=== PATIENT | female | born 1940 | race Caucasian/White ===

== ENCOUNTER 2016-10-16 18:59 | Inpatient (IN) | payer MEDICARE, BC ==
[~2016-10-16] VITALS: Ht 175.3 cm; Wt 71.0 kg
[2016-10-16 19:02] VITALS: Ht 175.3 cm; Wt 71.0 kg
[2016-10-16] MEDS ORDERED: ONDANSETRON 4 MG INJ IV STA ×2 (19:34→19:56)
[2016-10-16] MEDS ORDERED: HYDROmorphONE 1 MG/ML SYG IV STA ×3 (19:34→22:28)
[2016-10-16] MEDS ORDERED: SOD CHLORIDE 0.9% 500 ML IV STA (19:56)
[2016-10-16 20:00] VITALS: TEMP 98.5
[2016-10-16 20:02] LABS: BASOPHILS % 0.3 % (0.0-2.0); EOSINOPHILS % 0.1 % (0.0-7.0); HEMATOCRIT 37.9 % (37.0-47.0); HEMOGLOBIN 12.5 g/dl (12.0-16.0); LYMPHOCYTES # 0.7 10^3/ul (0.8-2.9); LYMPHOCYTES % 7.4 % (15.0-51.0); MEAN CORPUSCULAR HEMOGLOBIN 32.5 pg (29.0-33.0); MEAN CORPUSCULAR VOLUME 98.4 fl (82.0-101.0); MEAN PLATELET VOLUME 10.9 fl (7.4-10.4); MONOCYTE # 0.3 10^3/ul (0.3-0.9); MONOCYTES % 3.1 % (0.0-11.0); NEUTROPHILS % 88.3 % (39.0-77.0); PLATELET COUNT 220 10^3/UL (140-415); RED BLOOD COUNT 3.85 10^6/ul (4.20-5.40); RED CELL DISTRIBUTION WIDTH 15.1 % (11.5-14.5)
[2016-10-16 20:19] LABS: INR 0.94; PROTIME 12.6 Sec (12.2-14.2)
[2016-10-16 20:21] LABS: CALCIUM 10.1 mg/dl (8.4-10.2); CREATININE 0.69 mg/dl (0.44-1.00); POTASSIUM 3.8 mmol/L (3.5-5.1)
--- NOTE | 2016-10-16 20:36 | ERA ---
ER Documentation Chief Complaint Date/Time DATE: 10/16/16 TIME: 20:34 Chief Complaint abd pain x 3 hours. +nausea -vomit, -diarrhea HPI 76-year-old female who presents to the emergency room complaining of abdominal pain for approximately 3 hours with associated right inguinal mass. She describes the pain as 8 out of 10, constant with associated worsening symptoms when she presses on the mass in the inguinal region on the right. Mild nausea but no vomiting. She states that she is passing stool and gas. ROS All systems reviewed and are negative except as per history of present illness. Allergies Allergies: Coded Allergies: No Known Allergy (Unverified , 10/16/16) PMhx/Soc Medical and Surgical Hx: pt denies Medical Hx, pt denies Surgical Hx History of Surgery: No Anesthesia Reaction: No Hx Neurological Disorder: No Hx Respiratory Disorders: No Hx Cardiac Disorders: Yes (hyperlipidemia, htn ) Hx Psychiatric Problems: No Hx Miscellaneous Medical Probl: No Hx Alcohol Use: No Hx Substance Use: No Hx Tobacco Use: No Smoking Status: Never smoker FmHx Family History: No diabetes Physical Exam Vitals Vital Signs Date Time Temp Pulse Resp B/P Pulse Ox O2 Delivery O2 Flow Rate FiO2 10/16/16 20:00 98.5 78 18 165/98 97 Room Air 10/16/16 19:02 98.5 83 18 192/89 97 Physical Exam General: Uncomfortable head: Normocephalic, atraumatic Eyes: Pupils equally reactive, EOM intact ENT: Moist mucous membranes Neck: Supple, no lymphadenopathy Respiratory: Lungs clear bilaterally, no distress Cardiovascular: RRR, no murmurs, rubs, or gallops Abdominal: Soft, no focal tenderness or peritonitis. Right inguinal region with a mass that is firm. With direct pressure unable to reduce what appears to be an inguinal hernia : Deferred MSK: No edema, no unilateral swelling, 5/5 strength Neurologic: Alert and oriented, moving all extremities, normal speech, no focal weakness, no cerebellar signs Skin: No rash Psych: Normal mood Result Diagram: 10/16/16194410/16/161944 Results 24 hrs Laboratory Tests Test 10/16/16 19:45 White Blood Count 10.010^3/ul Red Blood Count 3.8510^6/ul Hemoglobin 12.5g/dl Hematocrit 37.9% Mean Corpuscular Volume 98.4fl Mean Corpuscular Hemoglobin 32.5pg Mean Corpuscular Hemoglobin Concent 33.0g/dl Red Cell Distribution Width 15.1% Platelet Count 27890^3/UL Mean Platelet Volume 10.9fl Neutrophils % 88.3% Lymphocytes % 7.4% Monocytes % 3.1% Eosinophils % 0.1% Basophils % 0.3% Nucleated Red Blood Cells % 0.0/100WBC Neutrophils # (Manual) 8.810^3/ul Lymphocytes # 0.710^3/ul Monocytes # 0.310^3/ul Eosinophils # 0.010^3/ul Basophils # 0.010^3/ul Nucleated Red Blood Cells # 0.010^3/ul Prothrombin Time 12.6Sec Prothrombin Time Ratio 1.0 INR International Normalized Ratio 0.94 Activated Partial Thromboplast Time 32.0Sec Sodium Level 141mmol/L Potassium Level 3.8mmol/L Chloride Level 107mmol/L Carbon Dioxide Level 24mmol/L Anion Gap 14 Blood Urea Nitrogen 18mg/dl Creatinine 0.69mg/dl Glucose Level 152mg/dl Calcium Level 10.1mg/dl Current Medications Medications (Trade) Dose Ordered Sig/Jessica Route PRN Reason Start Time Stop Time Status Last Admin Dose Admin Hydromorphone HCl (Dilaudid) 0.5 mg ONCE STAT IV 10/16/16 19:34 10/16/16 19:35 DC 10/16/16 19:49 Ondansetron HCl 4 mg 4 mg ONCE STAT IV 10/16/16 19:34 10/16/16 19:35 DC 10/16/16 19:49 Sodium Chloride (NS) 500 ml @ 500 mls/hr Q1H STAT IV 10/16/16 19:56 10/16/16 20:55 DC 10/16/16 20:32 Hydromorphone HCl (Dilaudid) 0.5 mg ONCE STAT IV 10/16/16 19:56 10/16/16 19:57 DC 10/16/16 20:27 Ondansetron HCl (Zofran Inj) 4 mg ONCE STAT IV 10/16/16 19:56 10/16/16 19:57 DC Ondansetron HCl (Zofran Inj) 4 mg BRIDGE ORDER PRN IV NAUSEA AND/OR VOMITING 10/16/16 22:30 10/17/16 22:29 Acetaminophen (Tylenol Tab) 650 mg ER BRIDGE PRN PO MILD PAIN/FEVER 10/16/16 22:30 10/17/16 22:29 Procedures/MDM EKG, MONITORS, & DIAGNOSTIC IMAGING: CT abdomen and pelvis: IMPRESSION: 1. Right femoral 4.3 cm hernia containing a dilated small bowel loop. Slight dilatation of the bowel loops just proximal to the hernia with relative decompression of the distal small bowel loops after the hernia suggests mild partial small bowel obstruction. 2. Status post hysterectomy. RPTAT: HJPL LAB INTERPRETATION: No leukocytosis MEDICAL DECISION MAKING: The patient presents to the emergency room with abdominal pain, nausea and right inguinal lesion. On inspection this lesion is most consistent with likely indirect hernia that appears to be incarcerated versus early strangulation. The patient was placed in Trendelenburg, and ice pack was placed on this region the patient was given pain medication. I attempted to manipulate the hernia without success. I was unable to reduce the hernia manually. CT imaging is indicated. The patient may require general surgery consultation if no improvement. ER COURSE: The patient CT shows evidence of incarcerated hernia. The patient has a bowel obstruction. No evidence of necrosis or strength relation at this time. Lactic acid has been added. I spoke to the general surgeon, Dr. Gutierrez who will come and evaluate the patient for possible operative intervention. The patient is n.p.o. We discussed NG tube with Dr. Gutierrez states that the patient has not required. No indication for antibiotics currently. 500cc NS provided I kept the patient and/or family informed of laboratory and diagnostic imaging results throughout the emergency room course. DISPOSITION PLAN: Medical surgical admission Accepting care team and consultations: I discussed the current laboratory data, diagnostic imaging and emergency care provided. Admitting team: Dr. Palma Admitting team indication: Insurance directed Consulting services: Dr. Gutierrez Departure Diagnosis: Primary Impression: Femoral hernia of right side Additional Impression: Incarcerated hernia Condition: Stable RUTH SCHMITT MD Oct 16, 2016 20:36
--- NOTE | 2016-10-16 21:01 | RADRPT ---
PROCEDURE: CT Abdomen and Pelvis without intravenous contrast. CLINICAL INDICATION: Right inguinal mass/hernia. . TECHNIQUE: CT scan of the abdomen and pelvis without intravenous contrast was performed on a multi -slice CT scanner. Coronal and sagittal reformatted images were obtained from the axial source image s. Images were reviewed on a high-resolution PACS workstation. Total DLP = 400.4 mGy-cm. CTDIvol = 7.7 mGy. One or more of the following dose reduction techniques were used: Automated exposure control. Adjustment of the mA and/or kV according to patient size. Use of iterative reconstruction technique. COMPARISON: None. FINDINGS: CT abdomen and pelvis: The lung bases are clear. The heart size is normal in size. The liver is normal in size and densit y without focal mass or intrahepatic biliary dilatation. The spleen is normal in size and homogeneo us in density. The pancreas as visualized is normal. The gallbladder shows no evidence of stones or distension . The adrenal glands are normal. The kidneys are symmetrically unremarkable. No ur olithiasis, obstructive uropathy, or solid mass lesion is seen. The stomach is partially collapsed, but is grossly unremarkable. There is a 4.3 cm right femoral her renee containing a dilated small bowel loop. There is mild dilatation of the small bowel loops proxima l to the hernia. There is decompression of the distal small bowel loops after the hernia. The colon and rectum are normal. The appendix is normal. There is no evidence of appendicitis or diverticulit is. The uterus has been removed.. The bladder is normal. There is no abdominal or pelvic adenopathy, free fluid, free air, mass or mesenteric inflammation. The aorta is normal in caliber with calcific atherosclerosis . The osseous structures showing mild levoscoliosis with degenerative enthesopathy of the spine. No osteolytic or osteoblastic lesions are identified. The soft tissues are within normal limits. Lack of IV and oral contrast limits sensit ivity of exam. IMPRESSION: 1. Right femoral 4.3 cm hernia containing a dilated small bowel loop. Slight dilatation of the jaime l loops just proximal to the hernia with relative decompression of the distal small bowel loops afte r the hernia suggests mild partial small bowel obstruction. 2. Status post hysterectomy. RPTAT: HJPL .Claudio Newby MD, MD Date Time Electronically viewed and signed by .Claudio Newby MD, on 10/16/2016 21:00 .L/
[2016-10-16] MEDS ORDERED: ACETAMINOPHEN 325 MG TAB PO PRN (22:30)
[2016-10-16] MEDS ORDERED: ONDANSETRON 4 MG INJ IV PRN (22:30)
[2016-10-17] VITALS (29 sets, daily range): BP systolic 107–155; BP diastolic 44–78; PULSE 60–78; RESP 13–27
[2016-10-17] MEDS ORDERED: NACL 0.9% 3 ML SYG IV SCH (01:00)
[2016-10-17] MEDS ORDERED: ONDANSETRON 4 MG INJ IV PRN ×3 (01:00→12:00)
[2016-10-17] MEDS ORDERED: hydrALAzine 20 MG INJ IV PRN ×3 (01:00→12:00)
[2016-10-17] MEDS: SOD CHLORIDE 0.9% 1,000 ML IV SCH ×2 (01:02→20:59)
[2016-10-17] MEDS: morphine 2 MG INJ IV PRN ×3 (01:03→09:56)
[2016-10-17 02:31] LABS: INR 1.03; PROTIME 13.5 Sec (12.2-14.2); PT RATIO 1.1
[2016-10-17 02:32] LABS: PARTIAL THROMBOPLASTIN TIME 33.2 Sec (25.0-35.0)
[2016-10-17 05:50] LABS: BASOPHILS % 0.2 % (0.0-2.0); EOSINOPHILS % 0.2 % (0.0-7.0); HEMATOCRIT 35.9 % (37.0-47.0); HEMOGLOBIN 11.8 g/dl (12.0-16.0); LYMPHOCYTES # 1.2 10^3/ul (0.8-2.9); LYMPHOCYTES % 13.7 % (15.0-51.0); MEAN CORPUSCULAR HEMOGLOBIN 32.7 pg (29.0-33.0); MEAN CORPUSCULAR HGB CONC 32.9 g/dl (32.0-37.0); MEAN CORPUSCULAR VOLUME 99.4 fl (82.0-101.0); MEAN PLATELET VOLUME 11.1 fl (7.4-10.4); MONOCYTE # 0.6 10^3/ul (0.3-0.9); MONOCYTES % 6.4 % (0.0-11.0); PLATELET COUNT 218 10^3/UL (140-415); RED BLOOD COUNT 3.61 10^6/ul (4.20-5.40); RED CELL DISTRIBUTION WIDTH 14.7 % (11.5-14.5); WHITE BLOOD COUNT 8.6 10^3/ul (4.8-10.8)
[2016-10-17] MEDS ORDERED: PANTOPRAZOLE 40 MG INJ IV SCH (06:00)
[2016-10-17 06:06] LABS: CHOL/HDL RATIO 2.4 RATIO
[2016-10-17 06:15] LABS: ALBUMIN 3.7 g/dl (3.3-4.9); ALBUMIN/GLOBULIN RATIO 1.32; BILIRUBIN,INDIRECT 0.3 mg/dl (0-1.1); BILIRUBIN,TOTAL 0.3 mg/dl (0.2-1.3); CALCIUM 9.6 mg/dl (8.4-10.2); CREATININE 0.56 mg/dl (0.44-1.00); POTASSIUM 3.9 mmol/L (3.5-5.1); TOTAL PROTEIN 6.5 g/dl (6.1-8.1)
--- NOTE | 2016-10-17 06:31 | HP ---
Date/Time of Note Date/Time of Note DATE: 10/17/16 TIME: 06:10 Assessment/Plan VTE Prophylaxis VTE Prophylaxis Intervention: SCD's Lines/Catheters IV [facility]ter [facility]from [facility]): Peripheral IV Urinary Cath still in place: No Assessment/Plan Chief Complaint/Hosp Course This is a 76-year-old female being admitted to the [facility] floor for: #1 incarcerated right femoral hernia: CAT scan shows:Right femoral 4.3 cm hernia containing a dilated small bowel loop. Slight dilatation of the bowel loops just proximal to the hernia with relative decompression of the distal small bowel loops after the hernia suggests mild partial small bowel obstruction. surgery was consulted via the ED. NG tube was not recommended at this time. Will continue to keep the patient n.p.o. Provide IV fluid hydration with normal saline. Will obtain cardiac clearance in the a.m. for surgery secondary to the patient's cardiac murmur. #2 Cardiac murmur: This appears to be of systolic murmur. Patient did not initially report any history of a murmur however one question after the murmur was heard on auscultation she did report that she sees a station captain for. She is unsure exactly what the etiology is of the murmur. Will obtain an echocardiogram. An EKG. Will consult cardiology as patient may need cardiac clearance at this point for her pending surgery. #3 hypertension: Continue patient home medications once patient is able to provide medication info. In the mean time, prn hydralazine iv. #4 DVT and GI prophylaxis: SCDs, Protonix. Further treatment strategy will be implemented as per the clinical course Problems: HPI/ROS Admit Date/Time Admit Date/Time Oct 16, 2016 at 22:18 Hx of Present Illness Chief complaint: Abdominal pain 3 hours This is a 76-year-old female who presents to the emergency room complaining of abdominal pain for approximately 3 hours with associated right inguinal mass. She describes the pain as 8 out of 10, constant with associated worsening symptoms when she presses on the mass in the inguinal region on the right. Mild nausea but no vomiting. She states that she is passing stool and gas. Upon my examination, patient was laying comfortably after receiving pain medications. She was not toxic appearing. Allergies: NKDA Medications: See LILIAN CABRERA Const: As per HPI Eyes : No pain discharge or redness or change in visual acuity ENT: No pain, sore throat, congestion, congestion, dysphagia or discharge Respiratory: No shortness of breath, cough, sputum, wheezing, or pleuritic pain Cardiovascular: No chest pain, palpitation, PND, or edema GI : As per HPI Genitourinary: No dysuria, hematuria, flank pain , discharge or CVA tenderness Musculoskeletal: No joint pain, back pain, neck pain, restricted range of motion in neck or joints Skin: No rash, bruising or hives Neuro: No headache, dizziness, syncope, seizure, focal weakness Endocrine: No polyuria, polydipsia, temperature intolerance Psych: No hallucination, depression, anxiety or suicidal ideation PMH/Family/Social Past Medical History Hypertension, hyperlipidemia, history of cardiac murmur patient is unsure what type of murmur she has but she does see a station captain. Past Surgical History Hysterectomy, adenoidectomy, facelift Family History Significant Family History: no pertinent family hx Social History Alcohol Use: none Smoking Status: Current every day smoker (2 packs per day 50 years) Drug Use: none Exam/Review of Systems Vital Signs Vitals Vital Signs Date Time Temp Pulse Resp B/P Pulse Ox O2 Delivery O2 Flow Rate FiO2 10/17/16 00:24 98.1 74 20 147/73 94 10/16/16 23:51 Nasal Cannula 2.0 Intake and Output 10/16/16 10/16/16 10/17/16 15:00 23:00 07:00 Intake Total 300 ml Balance 300 ml Exam Exam General: Patient is well-developed well-nourished The patient is alert oriented -3 lying comfortably in bed. HEENT: Atraumatic, normocephalic. The pupils are equal, round and reactive. Extraocular motor are intact Neck: Supple with full range of motion. No rigidity or meningismus Chest: Nontender Lungs: Clear to auscultation bilaterally no crackles rales or wheezing Heart: Systolic murmur, regular rhythm Abdomen: Right inguinal/femoral mass/hernia, mild tenderness to palpation. Extremities: Normal to inspection, no edema no cyanosis Neurologic: Normal mental status, speech normal, cranial nerves II through XII are intact, motor and sensory are intact, no focal weakness Additional Comments PROCEDURE: CT Abdomen and Pelvis without intravenous contrast. CLINICAL INDICATION: Right inguinal mass/hernia. . TECHNIQUE: CT scan of the abdomen and pelvis without intravenous contrast was performed on a multi-slice CT scanner. Coronal and sagittal reformatted images were obtained from the axial source images. Images were reviewed on a high- resolution PACS workstation. Total DLP = 400.4 mGy-cm. CTDIvol = 7.7 mGy. One or more of the following dose reduction techniques were used: Automated exposure control. Adjustment of the mA and/or kV according to patient size. Use of iterative reconstruction technique. COMPARISON: None. FINDINGS: CT abdomen and pelvis: The lung bases are clear. The heart size is normal in size. The liver is normal in size and density without focal mass or intrahepatic biliary dilatation. The spleen is normal in size and homogeneous in density. The pancreas as visualized is normal. The gallbladder shows no evidence of stones or distension . The adrenal glands are normal. The kidneys are symmetrically unremarkable. No urolithiasis, obstructive uropathy, or solid mass lesion is seen. The stomach is partially collapsed, but is grossly unremarkable. There is a 4.3 cm right femoral hernia containing a dilated small bowel loop. There is mild dilatation of the small bowel loops proximal to the hernia. There is decompression of the distal small bowel loops after the hernia. The colon and rectum are normal. The appendix is normal. There is no evidence of appendicitis or diverticulitis. The uterus has been removed.. The bladder is normal. There is no abdominal or pelvic adenopathy, free fluid, free air, mass or mesenteric inflammation. The aorta is normal in caliber with calcific atherosclerosis . The osseous structures showing mild levoscoliosis with degenerative enthesopathy of the spine. No osteolytic or osteoblastic lesions are identified. The soft tissues are within normal limits. Lack of IV and oral contrast limits sensitivity of exam. IMPRESSION: 1. Right femoral 4.3 cm hernia containing a dilated small bowel loop. Slight dilatation of the bowel loops just proximal to the hernia with relative decompression of the distal small bowel loops after the hernia suggests mild partial small bowel obstruction. 2. Status post hysterectomy. RPTAT: HJPL .Claudio Newby MD, MD Date Time Electronically viewed and signed by .Claudio Newby MDMD on 10/16/2016 21:00 .L/ CC: RUTH SCHMITT MD Labs Result Diagram: 10/17/16 0448 10/16/16 1945 Medications Medications Current Medications Sodium Chloride (NS) 1,000 ml @ 75 mls/hr [id number] IV Last administered on 10/17 01:02; Admin Dose 75 MLS/HR; Start 10/17/16 at 00:40 Ondansetron HCl (Zofran Inj) 4 mg Q6H PRN IV NAUSEA AND/OR VOMITING; Start 12/23 at 01:00 Morphine Sulfate (morphine) 2 mg Q4H PRN IV SEVERE PAIN LEVEL 7-10 Last administered on 10/17/16 05:49; Admin Dose 2 MG; Start 10/17/16 at 01:00 Pantoprazole (Protonix Iv) 40 mg DAILY@06 IV Last administered on 10/17/16 05: 51; Admin Dose 40 MG; Start 10/17/16 at 06:00 Hydralazine HCl (Apresoline) 10 mg Q4H PRN IV ELEVATED BLOOD PRESSURE; Start at 01:00 LEN PINEDA Oct 17, 2016 06:22
[2016-10-17] MEDS ORDERED: ROCURONIUM 50 MG INJ ONE (07:00)
--- NOTE | 2016-10-17 09:28 | CONS ---
Date/Time of Note Date/Time of Note DATE: 10/17/16 TIME: 09:21 Assessment/Plan Assessment/Plan Chief Complaint/Hosp Course Patient admitted for incarcerated hernia and planned for surgery this afternoon She has known severe aortic stenoss but no evidence of chest pain or heart failure. She can walk on level ground without difficulty and up stairs slowly Problems: Additional Assessment/Plan Given severe aortic stenosis patient is at moderate risk of perioperative cardivascular events. Given the incarcerated hernia it is possible that benefits of surgery outweigh risk. During surgery hypotension should be avoided and caution with overhydration in the perioperative period is warranted. I would recommend postoperative telemetry monitoring as well Consultation Date/Type/Reason Admit Date/Time Oct 16, 2016 at 22:18 Reason for Consultation Preoperative evaluation in the setting of Murmur Constitutional: no complaints Eyes: no complaints Respiratory: no complaints Gastrointestinal: pain Past Medical History Medical History: angina Social History Alcohol Use: none Smoking Status: Current every day smoker (2 packs per day 50 years) Drug Use: none Exam/Review of Systems Vital Signs Vitals Vital Signs Date Time Temp Pulse Resp B/P Pulse Ox O2 Delivery O2 Flow Rate FiO2 10/17/16 07:55 98.3 72 18 132/63 93 10/16/16 23:51 Nasal Cannula 2.0 Intake and Output 10/16/16 10/16/16 10/17/16 15:00 23:00 07:00 Intake Total 300 ml Balance 300 ml Exam Constitutional: alert, oriented Psych: no complaints Respiratory: clear to auscultation Cardiovascular: systolic murmur (loud systolic murmur at base) Gastrointestinal: soft (mild tenderness) Results Result Diagram: 10/17/16 0448 10/17/16 0448 Results 24 hrs Laboratory Tests Test 10/16/16 19:45 10/16/16 22:20 10/17/16 01:23 10/17/16 04:45 White Blood Count 10.0 Red Blood Count 3.85 L Hemoglobin 12.5 Hematocrit 37.9 Mean Corpuscular Volume 98.4 Mean Corpuscular Hemoglobin 32.5 Mean Corpuscular Hemoglobin Concent 33.0 Red Cell Distribution Width 15.1 H Platelet Count 220 Mean Platelet Volume 10.9 H Neutrophils % 88.3 H Lymphocytes % 7.4 L Monocytes % 3.1 Eosinophils % 0.1 Basophils % 0.3 Nucleated Red Blood Cells % 0.0 Neutrophils # (Manual) 8.8 H Lymphocytes # 0.7 L Monocytes # 0.3 Eosinophils # 0.0 Basophils # 0.0 Nucleated Red Blood Cells # 0.0 Prothrombin Time 12.6 13.5 Prothrombin Time Ratio 1.0 1.1 INR International Normalized Ratio 0.94 1.03 Activated Partial Thromboplast Time 32.0 33.2 Sodium Level 141 Potassium Level 3.8 Chloride Level 107 Carbon Dioxide Level 24 Anion Gap 14 Blood Urea Nitrogen 18 Creatinine 0.69 Glucose Level 152 Calcium Level 10.1 Lactic Acid Level 0.6 Hemoglobin A1c 4.2 Test 10/17/16 04:48 White Blood Count 8.6 Red Blood Count 3.61 L Hemoglobin 11.8 L Hematocrit 35.9 L Mean Corpuscular Volume 99.4 Mean Corpuscular Hemoglobin 32.7 Mean Corpuscular Hemoglobin Concent 32.9 Red Cell Distribution Width 14.7 H Platelet Count 218 Mean Platelet Volume 11.1 H Neutrophils % 79.0 H Lymphocytes % 13.7 L Monocytes % 6.4 Eosinophils % 0.2 Basophils % 0.2 Nucleated Red Blood Cells % 0.0 Neutrophils # (Manual) 6.8 Lymphocytes # 1.2 Monocytes # 0.6 Eosinophils # 0.0 Basophils # 0.0 Nucleated Red Blood Cells # 0.0 Sodium Level 141 Potassium Level 3.9 Chloride Level 109 Carbon Dioxide Level 26 Anion Gap 10 Blood Urea Nitrogen 16 Creatinine 0.56 Glucose Level 112 # Calcium Level 9.6 Magnesium Level 1.8 Total Bilirubin 0.3 Direct Bilirubin 0.00 Indirect Bilirubin 0.3 Aspartate Amino Transf (AST/SGOT) 18 Alanine Aminotransferase (ALT/SGPT) 20 Alkaline Phosphatase 41 L Total Protein 6.5 Albumin 3.7 Globulin 2.80 Albumin/Globulin Ratio 1.32 Triglycerides Level 51 Cholesterol Level 126 LDL Cholesterol, Calculated 65 HDL Cholesterol 51 Cholesterol/HDL Ratio 2.4 Thyroid Stimulating Hormone (TSH) 1.510 Medications Medications Current Medications Sodium Chloride (NS) 1,000 ml @ 75 mls/hr [id number] IV Last administered on 10/17t 01:02; Admin Dose 75 MLS/HR; Start 10/17/16 at 00:40 Ondansetron HCl (Zofran Inj) 4 mg Q6H PRN IV NAUSEA AND/OR VOMITING; Start 12/23 at 01:00 Morphine Sulfate (morphine) 2 mg Q4H PRN IV SEVERE PAIN LEVEL 7-10 Last administered on 10/17/16 05:49; Admin Dose 2 MG; Start 10/17/16 at 01:00 Pantoprazole (Protonix Iv) 40 mg DAILY@06 IV Last administered on 10/17/16 05: 51; Admin Dose 40 MG; Start 10/17/16 at 06:00 Hydralazine HCl (Apresoline) 10 mg Q4H PRN IV ELEVATED BLOOD PRESSURE; Start at 01:00 Hydralazine HCl (Apresoline) 10 mg Q6H PRN IV ELEVATED BLOOD PRESSURE; Start at 06:30 WILLIAM IZAGUIRRE MD Oct 17, 2016 09:28
--- NOTE | 2016-10-17 09:37 | RADRPT ---
Echocardiogram Report Patient Name: NANCY ROA Gender: Female Date: 1940 Study Date: 17-Oct-2016 Sales Apprentice: Lowell Steve [facility] Location: [id number] Ref. Physician: LEN PINEDA Quality: Good Procedures: Transthoracic echocardiogram with complete 2D, M-Mode, and doppler examination. Indications: Murmur. 2D/M Mode Doppler Measurement Value Normal Ranges Measurement Value Normal Ranges LVIDd 2D 5.1 3.5 - 5.6 cm STEFFI Vmax 1.0 cm2 LVIDs 2D 3.6 2.1 - 4.1 cm STEFFI VTI 1.0 cm2 LVPWd 2D 1.1 0.6 - 1.1 cm AV Mean Azael 3.0 m/sec IVSd 2D 1.1 0.6 - 1.1 cm AV Mean PG 44.2 mmHg AoR Diam 2D 3.2 2.0 - 3.7 cm AV Peak Azael 4.4 m/sec EDV 2D 126.4 cm3 AV Peak PG 78.0 mmHg ESV 2D 47.9 cm3 AV VTI 120.8 cm LA Dimen 2D 3.7 2.3 - 4.0 cm LVOT Mean Azael 1.2 m/sec LVOT Diam 1.9 cm LVOT Mean PG 6.0 mmHg LVOT Peak Azael 1.6 m/sec LVOT Peak PG 10.4 mmHg LVOT VTI 42.1 cm MV E Peak Azael 0.7 m/sec MV A Peak Azael 1.1 m/sec MV E/A 0.6 MV Decel Time 237 msec MV Decel [place] 3 MV E/A 0.6 TR Peak Azael 3.2 m/sec TR Peak PG 40.6 mmHg RVSP 44.0 mmHg Findings Left Ventricle: Normal left ventricular systolic function. Normal left ventricular cavity size. Mild concentric left ventricular hypertrophy. Ejection fraction is visually estimated at 65 %. Tissue Doppler/Mitral Doppler indices are consistent with impaired relaxation (Stage I diastolic dysfunction). Right Ventricle: Normal right ventricular size. Normal right ventricular systolic function. Left Atrium: The left atrium is normal in size. Right Atrium: The right atrium is normal in size. Mitral Valve: Normal appearance of the mitral valve. Mild mitral annular calcification. Trace mitral regurgitation. Aortic Valve: Severe aortic stenosis. Aortic valve Max velocity 4.42 m/sec. Max PG 78.00 mmHg. Mean PG 44.20 mmHg. Aortic valve area 1.00 cm2. Aortic cusps appear severely calcified. Trace aortic valve regurgitation. Tricuspid Valve: Normal appearance of the tricuspid valve. Estimated peak PA systolic pressure 44 mmHg. There is mild tricuspid regurgitation. Pulmonic Valve: Pulmonic valve not well visualized. Pericardium: Normal pericardium with no significant pericardial effusion. Aorta: Normal aortic root. IVC: Normal size and normal respiratory collapse consistent with normal right atrial pressure. Conclusions 1.Normal left ventricular systolic function. Normal left ventricular cavity size. Mild concentric left ventricular hypertrophy. Ejection fraction is visually estimated at 65 %. Tissue Doppler/Mitral Doppler indices are consistent with impaired relaxation (Stage I diastolic dysfunction). 2.Severe aortic stenosis. Aortic valve Max velocity 4.42 m/sec. Max PG 78.00 mmHg. Mean PG 44.20 mmHg. Aortic valve area 1.00 cm2. Aortic cusps appear severely calcified. Trace aortic valve regurgitation. Electronically Signed By: Ambrocio Crews 17-Oct-2016 09:36:55 -0700 Patient Name: NANCY ROA Study Date: 17-Oct-[id number]
[2016-10-17] MEDS ORDERED: PROPOFOL 20 ML ONE (10:51)
[2016-10-17] MEDS ORDERED: ROPIVACAINE 0.2% 20 ML VIAL ONE (10:51)
[2016-10-17] MEDS ORDERED: FENTAnyl 50 MCG/ML VIAL ONE ×2 (10:51→11:37)
--- NOTE | 2016-10-17 11:13 | CONS ---
Date/Time of Note Date/Time of Note DATE: 10/17/16 TIME: 11:09 Assessment/Plan Assessment/Plan Additional Assessment/Plan Incarcerated right femoral hernia with secondary small bowel obstruction Time: Patient will undergo urgent operative intervention in the form of reduction and release of small bowel obstruction with repair with mesh Consultation Date/Type/Reason Admit Date/Time Oct 16, 2016 at 22:18 Date of Consultation: Oct 17, 2016 Reason for Consultation Incarcerated right femoral hernia with secondary small bowel obstruction Hx of Present Illness The patient is a 76-year-old female with no previous abdominal surgeries who presents with a one-day history of a painful mass in the right groin associated with nausea. CT scan shows incarcerated right femoral hernia with a loop of small bowel, and the secondary small bowel obstruction. Constitutional: no complaints Eyes: no complaints Respiratory: no complaints Cardiovascular: no complaints Gastrointestinal: no complaints, pain (Right groin) Genitourinary: no complaints Musculoskeletal: no complaints Skin: no complaints Neurologic: no complaints Endocrine: no complaints Lymphatic: no complaints Psychological: no complaints Immunologic: no complaints Past Medical History Medical History: angina, high cholesterol, other (Aortic stenosis) Past Surgical History Past Surgical Hx: no surgical history Family History Significant Family History: no pertinent family hx Social History Alcohol Use: none Smoking Status: Current every day smoker (2 packs per day 50 years) Drug Use: none Exam/Review of Systems Vital Signs Vitals Vital Signs Date Time Temp Pulse Resp B/P Pulse Ox O2 Delivery O2 Flow Rate FiO2 10/17/16 07:55 98.3 72 18 132/63 93 10/16/16 23:51 Nasal Cannula 2.0 Intake and Output 10/16/16 10/16/16 10/17/16 15:00 23:00 07:00 Intake Total 300 ml Balance 300 ml Exam Constitutional: alert Psych: no complaints Head: normocephalic Eyes: nl conjunctiva ENMT: nl external ears & nose Neck: supple Respiratory: clear to auscultation Cardiovascular: systolic murmur Gastrointestinal: other (Incarcerated right femoral versus right inguinal hernia), soft Musculoskeletal: nl extremities to inspection Extremities: normal pulses Neurological: FISH 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 II-XII intact Skin: nl turgor Lymph: nl lymph nodes Results Result Diagram: 10/17/16 0448 10/17/16 0448 Results 24 hrs Laboratory Tests Test 10/16/16 19:45 10/16/16 22:20 10/17/16 01:23 10/17/16 04:45 White Blood Count 10.0 Red Blood Count 3.85 L Hemoglobin 12.5 Hematocrit 37.9 Mean Corpuscular Volume 98.4 Mean Corpuscular Hemoglobin 32.5 Mean Corpuscular Hemoglobin Concent 33.0 Red Cell Distribution Width 15.1 H Platelet Count 220 Mean Platelet Volume 10.9 H Neutrophils % 88.3 H Lymphocytes % 7.4 L Monocytes % 3.1 Eosinophils % 0.1 Basophils % 0.3 Nucleated Red Blood Cells % 0.0 Neutrophils # (Manual) 8.8 H Lymphocytes # 0.7 L Monocytes # 0.3 Eosinophils # 0.0 Basophils # 0.0 Nucleated Red Blood Cells # 0.0 Prothrombin Time 12.6 13.5 Prothrombin Time Ratio 1.0 1.1 INR International Normalized Ratio 0.94 1.03 Activated Partial Thromboplast Time 32.0 33.2 Sodium Level 141 Potassium Level 3.8 Chloride Level 107 Carbon Dioxide Level 24 Anion Gap 14 Blood Urea Nitrogen 18 Creatinine 0.69 Glucose Level 152 Calcium Level 10.1 Lactic Acid Level 0.6 Hemoglobin A1c 4.2 Test 10/17/16 04:48 White Blood Count 8.6 Red Blood Count 3.61 L Hemoglobin 11.8 L Hematocrit 35.9 L Mean Corpuscular Volume 99.4 Mean Corpuscular Hemoglobin 32.7 Mean Corpuscular Hemoglobin Concent 32.9 Red Cell Distribution Width 14.7 H Platelet Count 218 Mean Platelet Volume 11.1 H Neutrophils % 79.0 H Lymphocytes % 13.7 L Monocytes % 6.4 Eosinophils % 0.2 Basophils % 0.2 Nucleated Red Blood Cells % 0.0 Neutrophils # (Manual) 6.8 Lymphocytes # 1.2 Monocytes # 0.6 Eosinophils # 0.0 Basophils # 0.0 Nucleated Red Blood Cells # 0.0 Sodium Level 141 Potassium Level 3.9 Chloride Level 109 Carbon Dioxide Level 26 Anion Gap 10 Blood Urea Nitrogen 16 Creatinine 0.56 Glucose Level 112 # Calcium Level 9.6 Magnesium Level 1.8 Total Bilirubin 0.3 Direct Bilirubin 0.00 Indirect Bilirubin 0.3 Aspartate Amino Transf (AST/SGOT) 18 Alanine Aminotransferase (ALT/SGPT) 20 Alkaline Phosphatase 41 L Total Protein 6.5 Albumin 3.7 Globulin 2.80 Albumin/Globulin Ratio 1.32 Triglycerides Level 51 Cholesterol Level 126 LDL Cholesterol, Calculated 65 HDL Cholesterol 51 Cholesterol/HDL Ratio 2.4 Thyroid Stimulating Hormone (TSH) 1.510 Medications Medications Current Medications Sodium Chloride (NS) 1,000 ml @ 75 mls/hr [id number] IV Last administered on 10/17 01:02; Admin Dose 75 MLS/HR; Start 10/17/16 at 00:40 Ondansetron HCl (Zofran Inj) 4 mg Q6H PRN IV NAUSEA AND/OR VOMITING; Start 12/23 at 01:00 Morphine Sulfate (morphine) 2 mg Q4H PRN IV SEVERE PAIN LEVEL 7-10 Last administered on 10/17/16 09:56; Admin Dose 2 MG; Start 10/17/16 at 01:00 Pantoprazole (Protonix Iv) 40 mg DAILY@06 IV Last administered on 10/17/16 05: 51; Admin Dose 40 MG; Start 10/17/16 at 06:00 Hydralazine HCl (Apresoline) 10 mg Q4H PRN IV ELEVATED BLOOD PRESSURE; Start at 01:00 Hydralazine HCl (Apresoline) 10 mg Q6H PRN IV ELEVATED BLOOD PRESSURE; Start at 06:30 JAIDA POPE MD Oct 17, 2016 11:13
[2016-10-17] MEDS ORDERED: PHENYLephrine (100 MCG/ML) 5ML SYG ONE (11:19)
[2016-10-17] MEDS ORDERED: BUPIVACAINE 0.25% (MPF) 30 ML INJ INJ ONE (11:45)
[2016-10-17] MEDS ORDERED: SUGAMMADEX SODIUM 200 MG/2 ML VIAL IV ONE (11:50)
[2016-10-17] MEDS ORDERED: ONDANSETRON 4 MG INJ ONE (11:50)
[2016-10-17] MEDS ORDERED: DEXAMETHASONE 4 MG/ML 1 ML INJ ONE (11:50)
[2016-10-17] MEDS ORDERED: METOCLOPRAMIDE 10 MG INJ ONE (11:50)
--- NOTE | 2016-10-17 11:59 | OPR ---
Date/Time of Note Date/Time of Note DATE: 10/17/16 TIME: 11:54 Operative Report Procedure Date: Oct 17, 2016 Preoperative Diagnosis Incarcerated right femoral hernia with secondary small bowel obstruction Postoperative Diagnosis Incarcerated right femoral hernia with secondary small bowel obstruction Operation Performed 1. Reduction of incarceration with release of small bowel obstruction 2. Repair right femoral hernia with extra large plug Surgeon: JAIDA POPE MD Anesthesia Type: general Anesthesiologist: CHARLEY THOMPSON MD Estimated Blood Loss: 0 - 10 ml's Transfusion Required: no Specimens Femoral hernia sac Grafts/Implants Extra large Bard PerFix plug Tubes/Drains None Complications: no Pt Condition Post Procedure: stable Disposition: PACU Indications Incarceration with secondary small bowel obstruction Operative\Procedure Findings Incarcerated right femoral hernia with involved loop of small bowel Procedure Description After satisfactory general endotracheal anesthesia was achieved, the abdomen was prepped and draped in the usual fashion. A 5 cm transverse skin incision was made in the right groin crease and carried down to the level of the external oblique. There was an incarcerated femoral hernia. Traction and mobilization of the sac resulted in a prompt reduction of the incarceration. Sac was opened confirming that there was no longer viscera within the sac. A P an clamp was placed across the base of the sac which was excised and submitted. The base was oversewn with a single suture of 0 Vicryl. Next an extra-large plug was placed into the femoral canal and secured circumferentially to healthy fascia with interrupted 2-0 Novafil suture. Hemostasis was total. The wound was infiltrated with 20 cc of 0.25% plain Marcaine. Carmen's fascia was closed with interrupted 3-0 Vicryl suture and skin closed with subcuticular absorbable nadege. Sponge and needle counts were reported as correct 2. JAIDA POPE MD Oct 17, 2016 11:59
[2016-10-17] MEDS ORDERED: FENTAnyl 50 MCG/ML VIAL IV PRN ×3 (12:00)
[2016-10-17] MEDS ORDERED: LABETALOL HCL 20MG INJ IV PRN (12:00)
[2016-10-17] MEDS ORDERED: OXYCODONE/ACETAMINOPHEN (5/325) TAB PO PRN (12:00)
[2016-10-17] MEDS ORDERED: DIPHENHYDRAMINE 50 MG INJ IV PRN (12:00)
[2016-10-17] MEDS ORDERED: morphine (1 MG/ML) 10ML SYRINGE IV PRN ×2 (12:00)
[2016-10-17] MEDS ORDERED: morphine 2 MG INJ IV PRN (12:00)
[2016-10-17] MEDS ORDERED: MEPERIDINE 25 MG INJ IV PRN (12:00)
[2016-10-17] MEDS ORDERED: ALBUMIN HUMAN 5% 250 ML IV PRN (12:00)
[2016-10-17] MEDS ORDERED: EPHEDrine SULFATE 50 MG/5 ML SYG IV PRN (12:00)
[2016-10-17] MEDS: morphine (1 MG/ML) 10ML SYRINGE IV PRN ×3 (12:36→13:51)
--- NOTE | 2016-10-17 15:43 | PN ---
Date/Time of Note Date/Time of Note DATE: 10/17/16 TIME: 15:40 Assessment/Plan VTE Prophylaxis VTE Prophylaxis Intervention: SCD's Lines/Catheters IV [facility] Peripheral IV Urinary Cath still in place: No Assessment/Plan Chief Complaint/Hosp Course Assessment and plan 1. Incarcerated right femoral hernia. CT scan of the abdomen and pelvis that showed right femoral 4.3 cm hernia containing a dilated small bowel loop. There is also slight dilation of the bowel loops just proximal to the hernia with relative decompression of the distal small bowel loops after the hernia suggestive of mild partial small bowel obstruction. Surgeon following. Patient for surgical intervention. We will follow. 2. Cardiac murmur. Retinal Surgeon following. Noted with echo showing severe aortic stenosis. Follow-up with game producer recommendations. 3. Stage I diastolic dysfunction. Retinal Surgeon following. Cardiac regimen per game producer 4. Essential hypertension. Will place on antihypertensives once able to try oral intake. Will continue with hydralazine prn for now Disposition plan: Tentative plan for surgical intervention. We will follow-up. Discussed plan of care with Dr. Maldonado Problems: Subjective 24 Hr Interval Summary Free Text/Dictation Patient for surgical intervention Exam/Review of Systems Vital Signs Vitals Vital Signs Date Time Temp Pulse Resp B/P Pulse Ox O2 Delivery O2 Flow Rate FiO2 10/17/16 14:53 68 23 96 10/17/16 14:38 116/61 Nasal Cannula 2.0 10/17/16 12:02 98.2 Intake and Output 10/16/16 10/16/16 10/17/16 15:00 23:00 07:00 Intake Total 300 ml Balance 300 ml Exam Patient for surgical Results Result Diagram: 10/17/16 0448 10/17/16 0448 Results 24 hrs Laboratory Tests Test 10/16/16 19:45 10/16/16 22:20 10/17/16 01:23 10/17/16 04:45 White Blood Count 10.0 Red Blood Count 3.85 L Hemoglobin 12.5 Hematocrit 37.9 Mean Corpuscular Volume 98.4 Mean Corpuscular Hemoglobin 32.5 Mean Corpuscular Hemoglobin Concent 33.0 Red Cell Distribution Width 15.1 H Platelet Count 220 Mean Platelet Volume 10.9 H Neutrophils % 88.3 H Lymphocytes % 7.4 L Monocytes % 3.1 Eosinophils % 0.1 Basophils % 0.3 Nucleated Red Blood Cells % 0.0 Neutrophils # (Manual) 8.8 H Lymphocytes # 0.7 L Monocytes # 0.3 Eosinophils # 0.0 Basophils # 0.0 Nucleated Red Blood Cells # 0.0 Prothrombin Time 12.6 13.5 Prothrombin Time Ratio 1.0 1.1 INR International Normalized Ratio 0.94 1.03 Activated Partial Thromboplast Time 32.0 33.2 Sodium Level 141 Potassium Level 3.8 Chloride Level 107 Carbon Dioxide Level 24 Anion Gap 14 Blood Urea Nitrogen 18 Creatinine 0.69 Glucose Level 152 Calcium Level 10.1 Lactic Acid Level 0.6 Hemoglobin A1c 4.2 Test 10/17/16 04:48 White Blood Count 8.6 Red Blood Count 3.61 L Hemoglobin 11.8 L Hematocrit 35.9 L Mean Corpuscular Volume 99.4 Mean Corpuscular Hemoglobin 32.7 Mean Corpuscular Hemoglobin Concent 32.9 Red Cell Distribution Width 14.7 H Platelet Count 218 Mean Platelet Volume 11.1 H Neutrophils % 79.0 H Lymphocytes % 13.7 L Monocytes % 6.4 Eosinophils % 0.2 Basophils % 0.2 Nucleated Red Blood Cells % 0.0 Neutrophils # (Manual) 6.8 Lymphocytes # 1.2 Monocytes # 0.6 Eosinophils # 0.0 Basophils # 0.0 Nucleated Red Blood Cells # 0.0 Sodium Level 141 Potassium Level 3.9 Chloride Level 109 Carbon Dioxide Level 26 Anion Gap 10 Blood Urea Nitrogen 16 Creatinine 0.56 Glucose Level 112 # Calcium Level 9.6 Magnesium Level 1.8 Total Bilirubin 0.3 Direct Bilirubin 0.00 Indirect Bilirubin 0.3 Aspartate Amino Transf (AST/SGOT) 18 Alanine Aminotransferase (ALT/SGPT) 20 Alkaline Phosphatase 41 L Total Protein 6.5 Albumin 3.7 Globulin 2.80 Albumin/Globulin Ratio 1.32 Triglycerides Level 51 Cholesterol Level 126 LDL Cholesterol, Calculated 65 HDL Cholesterol 51 Cholesterol/HDL Ratio 2.4 Thyroid Stimulating Hormone (TSH) 1.510 Medications Medications Current Medications Sodium Chloride (NS) 1,000 ml @ 75 mls/hr [id number] IV Last administered on 10/17t 01:02; Admin Dose 75 MLS/HR; Start 10/17/16 at 00:40 Ondansetron HCl (Zofran Inj) 4 mg Q6H PRN IV NAUSEA AND/OR VOMITING; Start 12/23 at 01:00 Morphine Sulfate (morphine) 2 mg Q4H PRN IV SEVERE PAIN LEVEL 7-10 Last administered on 10/17/16t 09:56; Admin Dose 2 MG; Start 10/17/16 at 01:00 Hydralazine HCl (Apresoline) 10 mg Q4H PRN IV ELEVATED BLOOD PRESSURE; Start at 01:00 Hydralazine HCl (Apresoline) 10 mg Q6H PRN IV ELEVATED BLOOD PRESSURE; Start at 06:30 Oxycodone/ Acetaminophen (Percocet (5/ 325)) 1 tab Q4H PRN PO MILD PAIN (1-3); Start 10/17/16 at 12:00 Oxycodone/ Acetaminophen (Percocet (5/ 325)) 2 tab Q4H PRN PO MODERATE PAIN (4- 6); Start 10/17/16 at 12:00 Ondansetron HCl (Zofran Inj) 4 mg Q6H PRN IV NAUSEA; Start 10/17/16 at 12:00 Pantoprazole (Protonix Tab) 40 mg DAILY@06 PO ; Start 10/18/16 at 06:00 BRYAN DE LUNA Oct 17, 2016 15:43
[2016-10-17] MEDS: OXYCODONE/ACETAMINOPHEN (5/325) TAB PO PRN (21:00)
[2016-10-18] VITALS (10 sets, daily range): BP systolic 111–128; BP diastolic 56–69; PULSE 59–85; RESP 17–20
[2016-10-18] MEDS: SOD CHLORIDE 0.9% 1,000 ML IV SCH (03:20)
[2016-10-18] MEDS ORDERED: PANTOPRAZOLE (EC) 40 MG TAB PO SCH (06:00)
[2016-10-18] MEDS: OXYCODONE/ACETAMINOPHEN (5/325) TAB PO PRN ×2 (08:03→13:00)
[2016-10-18 09:48] LABS: BASOPHILS % 0.2 % (0.0-2.0); EOSINOPHILS # 0.1 10^3/ul (0.0-0.5); EOSINOPHILS % 0.6 % (0.0-7.0); HEMATOCRIT 35.6 % (37.0-47.0); HEMOGLOBIN 11.5 g/dl (12.0-16.0); LYMPHOCYTES % 9.3 % (15.0-51.0); MEAN CORPUSCULAR HEMOGLOBIN 32.6 pg (29.0-33.0); MEAN CORPUSCULAR HGB CONC 32.3 g/dl (32.0-37.0); MEAN CORPUSCULAR VOLUME 100.8 fl (82.0-101.0); MEAN PLATELET VOLUME 10.3 fl (7.4-10.4); MONOCYTE # 0.7 10^3/ul (0.3-0.9); MONOCYTES % 6.5 % (0.0-11.0); NEUTROPHILS % 82.9 % (39.0-77.0); PLATELET COUNT 211 10^3/UL (140-415); RED BLOOD COUNT 3.53 10^6/ul (4.20-5.40); RED CELL DISTRIBUTION WIDTH 14.7 % (11.5-14.5); WHITE BLOOD COUNT 10.9 10^3/ul (4.8-10.8)
[2016-10-18] MEDS ORDERED: Oxycodone/Acetamin (5/325) PO (09:49)
[2016-10-18] MEDS ORDERED: DOCU-144 PO (09:49)
--- NOTE | 2016-10-18 09:51 | PDOCDIS ---
Discharge Instructions DIAGNOSIS Discharge Diagnosis 1. Incarcerated right femoral hernia. 2. Cardiac murmur. Noted with echo showing severe aortic stenosis. 3. Stage I diastolic dysfunction. HOME CARE INSTRUCTIONS: Diet Instructions: Low Fat /Cholesterol FOLLOW UP/APPOINTMENTS Follow-up Plan 1. Follow up with Dr. Rey Gutierrez in one week 2. Follow up with your bacteriologist industrial in one week BRYAN DE LUNA Oct 18, 2016 09:51
[2016-10-18 10:17] LABS: CALCIUM 9.2 mg/dl (8.4-10.2); CREATININE 0.57 mg/dl (0.44-1.00); POTASSIUM 3.9 mmol/L (3.5-5.1)
--- NOTE | 2016-10-18 16:11 | CONS ---
Date/Time of Note Date/Time of Note DATE: 10/18/16 TIME: 16:08 Assessment/Plan Assessment/Plan Additional Assessment/Plan Hernia status post surgery Severe aortic stenosis Preserved ejection fraction History of GI bleed Active tobacco use -Patient has been doing well post operatively. No evidence of decompensated congestive heart failure. I have stopped her IV fluids. Extensive discussion had with patient regarding her valve disease. She does admit to decreased physical activity. She has been having issues of recurrent GI bleed and is waiting small intestinal endoscopy in the near future. 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 DC planning with outpatient cardiology evaluation Consultation Date/Type/Reason Admit Date/Time Oct 16, 2016 at 22:18 Initial Consult Date 10/17/16 Type of Consultation: cv 24 HR Interval Summary Free Text/Dictation Denies chest pain, shortness of breath, palpitations or dizziness. Doing well post procedure Exam/Review of Systems Vital Signs Vitals Vital Signs Date Time Temp Pulse Resp B/P Pulse Ox O2 Delivery O2 Flow Rate FiO2 10/18/16 12:42 63 10/18/16 11:28 98.8 18 128/61 93 10/17/16 19:55 Nasal Cannula 2.0 Intake and Output 10/17/16 10/17/16 10/18/16 15:00 23:00 07:00 Intake Total 1400 ml 1050 ml Output Total 5 ml Balance 1395 ml 1050 ml Exam No apparent distress Constitutional: alert, oriented Head: normocephalic Respiratory: clear to auscultation, normal air movement Cardiovascular: regular rate and rhythm, systolic murmur (Late peaking systolic ) Gastrointestinal: bowel sounds, non-tender, other, soft Extremities: other (no edema) Results Result Diagram: 10/18/16 0935 10/18/16 0935 Results 24 hrs Laboratory Tests Test 10/18/16 09:35 White Blood Count 10.9 #H Red Blood Count 3.53 L Hemoglobin 11.5 L Hematocrit 35.6 L Mean Corpuscular Volume 100.8 Mean Corpuscular Hemoglobin 32.6 Mean Corpuscular Hemoglobin Concent 32.3 Red Cell Distribution Width 14.7 H Platelet Count 211 Mean Platelet Volume 10.3 Neutrophils % 82.9 H Lymphocytes % 9.3 L Monocytes % 6.5 Eosinophils % 0.6 Basophils % 0.2 Nucleated Red Blood Cells % 0.0 Neutrophils # (Manual) 9.0 H Lymphocytes # 1.0 Monocytes # 0.7 Eosinophils # 0.1 Basophils # 0.0 Nucleated Red Blood Cells # 0.0 Sodium Level 137 Potassium Level 3.9 Chloride Level 104 Carbon Dioxide Level 30 Anion Gap 7 L Blood Urea Nitrogen 9 Creatinine 0.57 Glucose Level 99 Calcium Level 9.2 Medications Medications Current Medications Sodium Chloride (NS) 1,000 ml @ 75 mls/hr [id number] IV Last administered on 10/17 20:59; Admin Dose 75 MLS/HR; Start 10/17/16 at 00:40 Ondansetron HCl (Zofran Inj) 4 mg Q6H PRN IV NAUSEA AND/OR VOMITING Last administered on 10/18/16 00:12; Admin Dose 4 MG; Start 10/17/16 at 01:00 Morphine Sulfate (morphine) 2 mg Q4H PRN IV SEVERE PAIN LEVEL 7-10 Last administered on 10/17/16 09:56; Admin Dose 2 MG; Start 10/17/16 at 01:00 Hydralazine HCl (Apresoline) 10 mg Q4H PRN IV ELEVATED BLOOD PRESSURE; Start at 01:00 Hydralazine HCl (Apresoline) 10 mg Q6H PRN IV ELEVATED BLOOD PRESSURE; Start at 06:30 Oxycodone/ Acetaminophen (Percocet (5/ 325)) 1 tab Q4H PRN PO MILD PAIN (1-3) Last administered on 10/18/16 13:00; Admin Dose 1 TAB; Start 10/17/16 at 12:00 Oxycodone/ Acetaminophen (Percocet (5/ 325)) 2 tab Q4H PRN PO MODERATE PAIN (4- 6); Start 10/17/16 at 12:00 Ondansetron HCl (Zofran Inj) 4 mg Q6H PRN IV NAUSEA; Start 10/17/16 at 12:00 Pantoprazole (Protonix Tab) 40 mg DAILY@06 PO Last administered on 10/18/16 06 :16; Admin Dose 40 MG; Start 10/18/16 at 06:00 Jacob Roberts DO Oct 18, 2016 16:11
--- NOTE | 2016-10-18 16:15 | DS ---
Date/Time of Note Date/Time of Note DATE: 10/18/16 TIME: 16:10 Discharge Summary Admission/Discharge Info Admit Date/Time Oct 16, 2016 at 22:18 Discharge Date/Time Discharge Diagnosis 1. Incarcerated right femoral hernia. 2. Cardiac murmur. Noted with echo showing severe aortic stenosis. 3. Stage I diastolic dysfunction. Patient Condition: Stable Consults 1. Dr. Jacob Roberts 2. Dr. Rey Gutierrez Hospital Course This is a 68-year-old female with history of hypertension, dyslipidemia, history of cardiac murmur, severe aortic stenosis, who came to [facility] due to reports of abdominal pain. Patient reported that she had abdominal pain 3 hours prior to admission associated with a right inguinal mass. Her pain was reported to be 8 out of 10. She subsequently went to [facility] for further evaluation. Upon examination she did have CT scan of her abdomen that did show a right femoral 4.3 cm hernia containing a dilated small bowel loop. There is also seen slight dilation of the bowel loops just proximal to the hernia with relative decompression of the distal small bowel loops after the hernia suggestive of small bowel obstruction. She was evaluated by surgeon and at that time was not recommended for NG tube placement. Patient was also noted with a heart murmur which per echocardiogram did show her to have severe aortic stenosis with stage I diastolic dysfunction. She was otherwise optimized on her cardiovascular medications and she was cleared for surgery by ski maker. Patient did undergo right incarcerated femoral hernia repair level 2 with mesh. She did tolerate procedure well. She was advanced on her diet per surgeon. During the course of stay she did improve. We did refer cardiac regimen to the ski maker and her blood pressure did remain stable although she did have a history of hypertension for which she was instructed to follow-up with ski maker for further monitoring and encouragement for antihypertensive medications. The plan of care was discussed with the patient and patient did verbalize her understanding. On the day of discharge patient was in stable condition Discussed plan of care with Dr. Maldonado Follow-up Plan 1. Follow up with Dr. Rey Gutierrez in one week 2. Follow up with your ski maker in one week Primary Care Provider Berto Padron MD Time spent on discharge: > 30 minutes Pending Labs Laboratory Tests Test 10/18/16 09:35 White Blood Count 10.910^3/ul (4.8-10.8) Red Blood Count 3.5310^6/ul (4.20-5.40) Hemoglobin 11.5g/dl (12.0-16.0) Hematocrit 35.6% (37.0-47.0) Mean Corpuscular Volume 100.8fl (82.0-101.0) Mean Corpuscular Hemoglobin 32.6pg (29.0-33.0) Mean Corpuscular Hemoglobin Concent 32.3g/dl (32.0-37.0) Red Cell Distribution Width 14.7% (11.5-14.5) Platelet Count 54758^3/UL (140-415) Mean Platelet Volume 10.3fl (7.4-10.4) Neutrophils % 82.9% (39.0-77.0) Lymphocytes % 9.3% (15.0-51.0) Monocytes % 6.5% (0.0-11.0) Eosinophils % 0.6% (0.0-7.0) Basophils % 0.2% (0.0-2.0) Nucleated Red Blood Cells % 0.0/100WBC (0.0-0.0) Neutrophils # (Manual) 9.010^3/ul (1.7-7.5) Lymphocytes # 1.010^3/ul (0.8-2.9) Monocytes # 0.710^3/ul (0.3-0.9) Eosinophils # 0.110^3/ul (0.0-0.5) Basophils # 0.010^3/ul (0.0-0.1) Nucleated Red Blood Cells # 0.010^3/ul (0.0-0.0) Sodium Level 137mmol/L (135-144) Potassium Level 3.9mmol/L (3.5-5.1) Chloride Level 104mmol/L (97-110) Carbon Dioxide Level 30mmol/L (21-31) Anion Gap 7 (8-16) Blood Urea Nitrogen 9mg/dl (7-20) Creatinine 0.57mg/dl (0.44-1.00) Glucose Level 99mg/dl (70-220) Calcium Level 9.2mg/dl (8.4-10.2) BRYAN DE LUNA Oct 18, 2016 16:15
--- NOTE | 2016-10-20 11:09 | RADRPT ---
Vent Rate: 67 bpm RR Interval: 0 msec [place] Interval: 204 msec QRS Duration: 86 msec QT Interval: 422 msec QTC Interval: 445 msec P-R-T [place]: 2 - 56 - 58 degrees Normal sinus rhythm Normal ECG Electronically Signed By: Booker Kamara [id number]
== END 2016-10-18 19:20 | disposition home or self-care (01) | DRG 337 ==
LOC: E/R 18:59 → MS1 22:18 → MS4 10-17 17:59
PROVIDERS: ADMIT Surgery; ATTEND Family Medicine
PROC: 0DN80ZZ Release Small Intestine, Open Approach (ICD-10-PCS; 2016-10-17)
PROC: 0YU70JZ Supplement Right Femoral Region with Synthetic Substitute, Open Approach (ICD-10-PCS; principal; 2016-10-17 11:00)
DX: K41.30 Unilateral femoral hernia, with obstruction, without gangrene, not specified as recurrent (principal); I35.0 Nonrheumatic aortic (valve) stenosis; I11.9 Hypertensive heart disease without heart failure; E78.5 Hyperlipidemia, unspecified; F17.210 Nicotine dependence, cigarettes, uncomplicated; R01.1 Cardiac murmur, unspecified; Z87.19 Personal history of other diseases of the digestive system
CPT/HCPCS: 36415; 74176; 80048; 80053; 80061; 83036; 83605; 83735; 84443; 85025; 85610; 85730; 88302; 93005; 93306; 96374; 96375; 96376; C1781; C9113; J1100; J1170; J1644; J2270; J2370; J2405; J2765; J2795; J3010; J7030; J7040

== ENCOUNTER → 2018-12-04 | Outpatient (CLI) | payer MEDICARE, BC ==
[~2018-12-04] MED LIST: DOCU-144 PO; HYDR-4011 PO; NALO4SPR NS; ONDA4TAB14 PO; Oxycodone/Acetamin (5/325) PO
== END | disposition home or self-care (01) ==
LOC: NUC 10:54
PROVIDERS: ATTEND Physician Assistant Surgical
DX: M54.6 Pain in thoracic spine (principal); M51.34 Other intervertebral disc degeneration, thoracic region
CPT/HCPCS: 78306; A9503